=== PATIENT | female | born 2000 | race Caucasian/White ===

== ENCOUNTER 2020-06-26 20:10 | Emergency (ER) | payer MEDICAID ==
[~2020-06-26] VITALS: Ht 182.9 cm; Wt 70.5 kg
[2020-06-26 20:28] VITALS: Ht 182.9 cm; Wt 70.5 kg
[2020-06-26] MEDS ORDERED: ADDERALL 10 MG10 MG PO (20:29)
[2020-06-26 20:59] LABS: BASOPHILS 0.2 % (0-2); EOSINOPHILS 0.3 % (0-7); HEMOGLOBIN 13.4 g/dL (12-16); IMMATURE GRANULOCYTES 0.2 % (0-5); LYMPHOCYTE ABS# 1.13 10x3/uL (1.18-3.74); LYMPHOCYTES 7.1 % (15-50); MCH 30.2 pg (26.0-34.0); MCHC 33.5 g/dL (31.0-37.0); MCV 90.3 fL (80.0-100.0); MEAN PLATELET VOLUME 9.5 fL (7.4-10.4); MONOCYTES 12.9 % (2-11); NEUTROPHIL ABS# 12.56 10x3/uL (1.56-6.13); NEUTROPHILS 79.3 % (40-80); PLATELET COUNT 284 10x3/uL (130-400); RBC 4.43 10x6/uL (4.00-5.40); RDW 13.2 % (11.5-14.5); WBC 15.8 10x3/uL (4.8-10.8)
[2020-06-26 21:07] LABS: CALC OSMOLALITY 266 mosm/kg (275-300); CALCIUM 9.1 mg/dL (8.5-10.1); CARBON DIOXIDE 25.8 mmol/L (21.0-32.0); CHLORIDE - SERUM 100 mmol/L (98-107); CREATININE - SERUM 0.7 mg/dL (0.6-1.3); GLUCOSE 90 mg/dL (74-106); POTASSIUM - SERUM 3.7 mmol/L (3.5-5.1); SODIUM 134 mmol/L (136-145); UREA NITROGEN 9 mg/dL (7-18); eGFR NON AFRICAN AMERICAN > 90 mL/min (90-120)
[2020-06-26 21:08] LABS: APTT 25.9 SECONDS (22.8-39.4); INR 0.97 (0.85-1.17); PROTIME 11.9 SECONDS (11.6-15.0)
[2020-06-26 21:24] LABS: ALKALINE PHOSPHATASE 61 U/L (30-120); ALT (SGPT) 24 U/L (10-68); BILIRUBIN - TOTAL 0.46 mg/dL (0.2-1.3); CREATINE KINASE 92 UL (21-215); PROTEIN - SERUM 7.3 g/dL (6.4-8.2); TROPONIN-I < 0.017 ng/mL (0.000-0.060)
[2020-06-26 21:33] LABS: BILIRUBIN NEGATIVE (NEGATIVE); KETONE NEGATIVE (NEGATIVE); NITRITE NEGATIVE (NEGATIVE); SQUAMOUS EPITHELIAL 0-5 HPF (0-4); UROBILINOGEN NORMAL mg/dL (< 2)
[2020-06-26 21:34] LABS: BACTERIA FEW HPF (NONE SEEN)
[2020-06-26 21:35] LABS: HCG URINE NEGATIVE (NEGATIVE)
[2020-06-27] MEDS ORDERED: CEPHALEXIN500 M1 PO (00:25)
[2020-06-27] MEDS ORDERED: MACROBID100 MG PO (00:25)
[2020-06-27 00:37] VITALS: BP 109/62
== END 2020-06-27 01:06 | disposition home or self-care (01) ==
LOC: D.ER 20:10
PROVIDERS: Family Medicine
DX: N39.0 Urinary tract infection, site not specified (principal); R10.31 Right lower quadrant pain